=== PATIENT | female | born 1990 | race Two or more races ===

== ENCOUNTER → 2018-12-20 | Outpatient (CLI) | payer OTHER | END | disposition home or self-care (01) | LOC: ECT 09:15 | DX: F33.2 Major depressive disorder, recurrent severe without psychotic features (principal); Z91.5 Personal history of self-harm ==

== ENCOUNTER 2018-12-26 10:56 | Outpatient (RCR) | payer OTHER ==
[~2018-12-26] VITALS: Ht 162.6 cm; Wt 59.4 kg
[2018-12-26 10:36] VITALS: BP 118/72
[2018-12-26 10:55] VITALS: BP 117/56
[~2018-12-26 10:56] MED LIST: Methohexital Sodium Syr 100mg/10ml IVP ONE; NS 500ML ONE; Succinylcholine 20mg/ml 10ml vial ONE
[2018-12-26] MEDS ORDERED: Methohexital Sodium Syr 100mg/10ml IVP ONE (10:57)
[2018-12-26] MEDS ORDERED: Ketorolac 60mg Inj IM ONE (10:57)
[2018-12-26] MEDS ORDERED: NS 500ML ONE (10:57)
[2018-12-26] MEDS ORDERED: Succinylcholine 20mg/ml 10ml vial ONE (10:57)
[2018-12-26 11:00] VITALS: BP 110/52
[2018-12-26 11:05] VITALS: BP 112/48
[2018-12-26 11:10] VITALS: BP 105/55
[2018-12-26 11:24] VITALS: BP 118/72
[2018-12-28 10:55] VITALS: BP 104/60
[2018-12-28 11:10] VITALS: BP 120/53
[2018-12-28 11:15] VITALS: BP 121/55
[2018-12-28 11:20] VITALS: BP 121/53
[2018-12-28 11:25] VITALS: BP 110/44
[2018-12-31] MEDS ORDERED: NS 500ML ONE (06:00)
[2018-12-31] MEDS ORDERED: Ketorolac 30mg Inj ONE (06:00)
[2018-12-31] MEDS ORDERED: Succinylcholine 20mg/ml 10ml vial ONE (06:00)
[2018-12-31] MEDS ORDERED: Methohexital Sodium Syr 100mg/10ml IVP ONE (06:00)
[2018-12-31 07:39] VITALS: BP 109/70
[2018-12-31 07:51] VITALS: BP 131/68
[2018-12-31] MEDS ORDERED: Ketorolac 30mg Inj IV ONE (07:51)
[2018-12-31 07:56] VITALS: BP 122/67
[2018-12-31 08:01] VITALS: BP 119/53
[2018-12-31 08:06] VITALS: BP 122/56
[2019-01-02] MEDS ORDERED: Ketorolac 30mg Inj ONE (06:00)
[2019-01-02] MEDS ORDERED: Succinylcholine 20mg/ml 10ml vial ONE (06:00)
[2019-01-02] MEDS ORDERED: Methohexital Sodium Syr 100mg/10ml IVP ONE (06:00)
[2019-01-02] MEDS ORDERED: NS 500ML ONE (06:00)
[2019-01-02 07:43] VITALS: BP 121/70
[2019-01-02 07:55] VITALS: BP 122/59
[2019-01-02 08:00] VITALS: BP 115/54
[2019-01-02 08:05] VITALS: BP 117/65
[2019-01-02 08:10] VITALS: BP 116/62
[2019-01-04] MEDS ORDERED: Methohexital Sodium Syr 100mg/10ml IVP ONE (06:00)
[2019-01-04] MEDS ORDERED: Succinylcholine 20mg/ml 10ml vial ONE (06:00)
[2019-01-04] MEDS ORDERED: NS 500ML ONE (06:00)
[2019-01-04] MEDS ORDERED: Ketorolac 30mg Inj ONE (06:00)
[2019-01-04 07:26] VITALS: BP 117/67
[2019-01-04 07:40] VITALS: BP 136/75
[2019-01-04 07:45] VITALS: BP 101/72
[2019-01-04 07:50] VITALS: BP 111/62
[2019-01-04 07:55] VITALS: BP 123/54
[2019-01-07] MEDS ORDERED: Succinylcholine 20mg/ml 10ml vial ONE (06:00)
[2019-01-07] MEDS ORDERED: Ketorolac 30mg Inj ONE (06:00)
[2019-01-07] MEDS ORDERED: NS 500ML ONE (06:00)
[2019-01-07] MEDS ORDERED: Methohexital Sodium Syr 100mg/10ml IVP ONE (06:00)
[2019-01-07 07:26] VITALS: BP 119/82
[2019-01-07 07:40] VITALS: BP 139/67
[2019-01-07 07:45] VITALS: BP 126/68
[2019-01-07 07:50] VITALS: BP 121/54
[2019-01-07 07:55] VITALS: BP 108/59
[2019-01-09 07:22] VITALS: BP 117/71
[2019-01-09 07:40] VITALS: BP 139/70
[2019-01-09 07:45] VITALS: BP 159/70
[2019-01-09 07:50] VITALS: BP 119/58
[2019-01-09 07:55] VITALS: BP 113/56
[2019-01-09] MEDS ORDERED: Ketorolac 60mg Inj IM ONE (09:00)
[2019-01-09] MEDS ORDERED: Succinylcholine 20mg/ml 10ml vial ONE (09:00)
[2019-01-09] MEDS ORDERED: Methohexital Sodium Syr 100mg/10ml IVP ONE (09:00)
[2019-01-09] MEDS ORDERED: NS 500ML ONE (09:00)
== END 2019-01-12 | disposition home or self-care (01) ==
LOC: ECT 10:56
DX: F33.2 Major depressive disorder, recurrent severe without psychotic features (principal)
CPT/HCPCS: 90870; J0330; J1885; J2405; J3360; J7040

== ENCOUNTER 2019-01-14 05:48 | Outpatient (RCR) | payer OTHER ==
[~2019-01-14] VITALS: Ht 162.6 cm; Wt 59.4 kg
[2019-01-14] MEDS ORDERED: Succinylcholine 20mg/ml 10ml vial ONE ×2 (05:49)
[2019-01-14] MEDS ORDERED: NS 500ML ONE ×2 (05:49)
[2019-01-14] MEDS ORDERED: Methohexital Sodium Syr 100mg/10ml IVP ONE ×2 (05:49)
[2019-01-14] MEDS ORDERED: Ketorolac 60mg Inj IM ONE ×2 (05:49)
[2019-01-14 07:45] VITALS: BP 114/70
[2019-01-14 07:58] VITALS: BP 124/59
[2019-01-14 08:03] VITALS: BP 115/62
[2019-01-14 08:08] VITALS: BP 130/93
[2019-01-14 08:13] VITALS: BP 101/53
[2019-01-23] MEDS ORDERED: Succinylcholine 20mg/ml 10ml vial ONE (06:00)
[2019-01-23] MEDS ORDERED: NS 500ML ONE (06:00)
[2019-01-23] MEDS ORDERED: Methohexital Sodium Syr 100mg/10ml IVP ONE (06:00)
[2019-01-23] MEDS ORDERED: Ketorolac 60mg Inj IM ONE (06:00)
[2019-01-23 08:01] VITALS: BP 122/74
[2019-01-23 08:15] VITALS: BP 117/56
[2019-01-23 08:20] VITALS: BP 112/47
[2019-01-23 08:25] VITALS: BP 108/52
[2019-01-23 08:30] VITALS: BP 105/52
[2019-02-08 07:58] VITALS: BP 115/70
[2019-02-08 08:11] VITALS: BP 126/74
[2019-02-08 08:16] VITALS: BP 120/57
[2019-02-08 08:21] VITALS: BP 114/61
[2019-02-08 08:26] VITALS: BP 114/68
== END 2019-02-12 | disposition home or self-care (01) ==
LOC: ECT 05:48
DX: F33.2 Major depressive disorder, recurrent severe without psychotic features (principal)
CPT/HCPCS: 90870; J2405

== ENCOUNTER 2019-03-22 05:18 | Outpatient (RCR) | payer OTHER ==
[~2019-03-22] VITALS: Ht 162.6 cm; Wt 59.4 kg
[2019-03-29] MEDS ORDERED: Ketorolac 30mg Inj ONE (06:00)
[2019-03-29] MEDS ORDERED: Succinylcholine 20mg/ml 10ml vial ONE (06:00)
[2019-03-29] MEDS ORDERED: Methohexital Sodium Syr 100mg/10ml IVP ONE (06:00)
[2019-03-29] MEDS ORDERED: NS 500ML ONE (06:00)
[2019-03-29 08:33] VITALS: BP 119/68
[2019-03-29 08:44] VITALS: BP 132/92
[2019-03-29 08:49] VITALS: BP 116/59
[2019-03-29 08:54] VITALS: BP 91/55
[2019-03-29 08:59] VITALS: BP 112/58
== END 2019-04-13 | disposition home or self-care (01) ==
LOC: ECT 05:18
DX: F33.2 Major depressive disorder, recurrent severe without psychotic features (principal)
CPT/HCPCS: 90870; J0330; J1885; J2405; J7040

== ENCOUNTER 2019-04-26 08:26 | Outpatient (RCR) | payer OTHER ==
[~2019-04-26] VITALS: Ht 162.6 cm; Wt 59.4 kg
[2019-04-26] MEDS ORDERED: Ketorolac 60mg Inj IM ONE (08:27)
[2019-04-26] MEDS ORDERED: Succinylcholine 20mg/ml 10ml vial ONE (08:27)
[2019-04-26] MEDS ORDERED: Methohexital Sodium Syr 100mg/10ml IVP ONE (08:27)
[2019-04-26] MEDS ORDERED: NS 500ML ONE (08:27)
[2019-04-26 09:30] VITALS: BP 110/81
[2019-04-26 09:45] VITALS: BP 114/57
[2019-04-26 09:50] VITALS: BP 125/54
[2019-04-26 09:55] VITALS: BP 122/64
[2019-04-26 10:00] VITALS: BP 122/54
== END 2019-05-14 | disposition home or self-care (01) ==
LOC: ECT 08:26
DX: F33.2 Major depressive disorder, recurrent severe without psychotic features (principal)
CPT/HCPCS: 90870; J0330; J2405; J7040

== ENCOUNTER 2019-05-24 07:08 | Outpatient (RCR) | payer OTHER ==
[~2019-05-24] VITALS: Ht 30.5 cm; Wt 0.5 kg
[2019-05-24] MEDS ORDERED: Succinylcholine 20mg/ml 10ml vial ONE (07:09)
[2019-05-24] MEDS ORDERED: Ketorolac 60mg Inj IM ONE (07:09)
[2019-05-24] MEDS ORDERED: NS 500ML ONE (07:09)
[2019-05-24] MEDS ORDERED: Methohexital Sodium Syr 100mg/10ml IVP ONE (07:09)
[2019-05-24 08:39] VITALS: BP 108/68
[2019-05-24 08:55] VITALS: BP 113/51
[2019-05-24 09:00] VITALS: BP 119/57
[2019-05-24 09:05] VITALS: BP 115/26
[2019-05-24 09:10] VITALS: BP 112/56
== END 2019-06-13 | disposition home or self-care (01) ==
LOC: ECT 07:08
DX: F33.2 Major depressive disorder, recurrent severe without psychotic features (principal)
CPT/HCPCS: 90870; J0330; J2405; J7040

== ENCOUNTER 2019-06-21 06:12 | Outpatient (RCR) | payer OTHER ==
[~2019-06-21] VITALS: Ht 162.6 cm; Wt 59.4 kg
[2019-06-21] MEDS ORDERED: NS 500ML ONE (06:13)
[2019-06-21] MEDS ORDERED: Ketorolac 60mg Inj IM ONE (06:13)
[2019-06-21] MEDS ORDERED: Succinylcholine 20mg/ml 10ml vial ONE (06:13)
[2019-06-21] MEDS ORDERED: Methohexital Sodium Syr 100mg/10ml IVP ONE (06:13)
[2019-06-21 09:01] VITALS: BP 108/64
[2019-06-21 09:15] VITALS: BP 113/52
[2019-06-21 09:20] VITALS: BP 113/56
[2019-06-21 09:25] VITALS: BP 114/55
[2019-06-21 09:30] VITALS: BP 107/56
[2019-07-12] MEDS ORDERED: NS 500ML ONE (07:00)
[2019-07-12] MEDS ORDERED: Ketorolac 60mg Inj IM ONE (07:00)
[2019-07-12] MEDS ORDERED: Succinylcholine 20mg/ml 10ml vial ONE (07:00)
[2019-07-12] MEDS ORDERED: Methohexital Sodium Syr 100mg/10ml IVP ONE (07:00)
[2019-07-12 10:00] VITALS: BP 117/66
[2019-07-12 10:14] VITALS: BP 117/53
[2019-07-12 10:19] VITALS: BP 111/56
[2019-07-12 10:24] VITALS: BP 106/57
[2019-07-12 10:29] VITALS: BP 107/49
== END 2019-07-14 | disposition home or self-care (01) ==
LOC: ECT 06:12
DX: F33.2 Major depressive disorder, recurrent severe without psychotic features (principal)
CPT/HCPCS: 90870; J0330; J2405; J7040

== ENCOUNTER 2019-08-12 05:34 | Outpatient (RCR) | payer OTHER ==
[~2019-08-12] VITALS: Ht 30.5 cm; Wt 0.5 kg
[2019-08-12 08:43] VITALS: BP 115/66
[2019-08-12] MEDS ORDERED: Atropine Sulfate 0.4mg/ml inj IVP PRN (08:59)
[2019-08-12] MEDS ORDERED: Lidocaine 2% 100mg/5ml Carp IV PRN (08:59)
[2019-08-12 09:00] VITALS: BP 120/56
[2019-08-12] MEDS ORDERED: Succinylcholine 20mg/ml 10ml vial ONE (09:00)
[2019-08-12] MEDS ORDERED: Ketorolac 60mg Inj IM ONE (09:00)
[2019-08-12] MEDS ORDERED: Methohexital Sodium Syr 100mg/10ml IVP ONE (09:00)
[2019-08-12] MEDS ORDERED: NS 500ML ONE (09:00)
[2019-08-12 09:05] VITALS: BP 109/59
[2019-08-12 09:10] VITALS: BP 120/56
[2019-08-12 09:15] VITALS: BP 107/64
== END 2019-08-13 | disposition home or self-care (01) ==
LOC: ECT 05:34
DX: F33.2 Major depressive disorder, recurrent severe without psychotic features (principal)
CPT/HCPCS: 90870; J0330; J2405; J7040

== ENCOUNTER 2019-09-16 04:48 | Outpatient (RCR) | payer OTHER ==
[~2019-09-16] VITALS: Ht 30.5 cm; Wt 0.5 kg
[2019-09-18] VITALS (7 sets, daily range): BP systolic 96–122; BP diastolic 40–62
[2019-09-18] MEDS ORDERED: Succinylcholine 20mg/ml 10ml vial ONE (08:00)
[2019-09-18] MEDS ORDERED: Ketorolac 60mg Inj IM ONE (08:00)
[2019-09-18] MEDS ORDERED: NS 500ML ONE (08:00)
[2019-09-18] MEDS ORDERED: Methohexital Sodium Syr 100mg/10ml IVP ONE (08:00)
[2019-09-18] MEDS ORDERED: Atropine Sulfate 0.4mg/ml inj IVP PRN (11:39)
[2019-09-18] MEDS ORDERED: Lidocaine 2% 100mg/5ml Carp IV PRN (11:39)
== END 2019-10-14 | disposition home or self-care (01) ==
LOC: ECT 04:48
DX: F33.2 Major depressive disorder, recurrent severe without psychotic features (principal)
CPT/HCPCS: 90870; J0330; J2405; J7040

== ENCOUNTER 2019-10-23 04:43 | Outpatient (RCR) | payer OTHER ==
[~2019-10-23] VITALS: Ht 30.5 cm; Wt 0.5 kg
[2019-10-28] VITALS (7 sets, daily range): BP systolic 103–115; BP diastolic 47–69
[2019-10-28] MEDS ORDERED: Atropine Sulfate 0.4mg/ml inj IVP PRN (08:39)
[2019-10-28] MEDS ORDERED: NS 500ML ONE (09:00)
[2019-10-28] MEDS ORDERED: Ketorolac 60mg Inj IM ONE (09:00)
[2019-10-28] MEDS ORDERED: Methohexita Syr 100mg/10ml IVP ONE (09:00)
[2019-10-28] MEDS ORDERED: Succinylcholine 20mg/ml 10ml vial ONE (09:00)
== END 2019-11-13 | disposition home or self-care (01) ==
LOC: ECT 04:43
DX: F33.2 Major depressive disorder, recurrent severe without psychotic features (principal)
CPT/HCPCS: 90870; J0330; J2405; J7040

== ENCOUNTER 2019-12-09 06:51 | Outpatient (RCR) | payer OTHER ==
[2019-12-09] VITALS (7 sets, daily range): BP systolic 113–123; BP diastolic 51–74
[~2019-12-09] VITALS: Ht 162.6 cm; Wt 59.4 kg
[2019-12-09] MEDS ORDERED: NS 500ML ONE (06:52)
[2019-12-09] MEDS ORDERED: Ketorolac 30mg Inj ONE (06:52)
[2019-12-09] MEDS ORDERED: Succinylcholine 20mg/ml 10ml vial ONE (06:52)
[2019-12-09] MEDS ORDERED: Methohexital Sodium Syr 100mg/10ml IVP ONE (06:52)
== END 2019-12-14 | disposition home or self-care (01) ==
LOC: ECT 06:51
DX: F33.2 Major depressive disorder, recurrent severe without psychotic features (principal)
CPT/HCPCS: 90870; J0330; J1885; J2405; J7040

== ENCOUNTER 2020-01-20 05:03 | Outpatient (RCR) | payer OTHER ==
[~2020-01-20] VITALS: Ht 30.5 cm; Wt 0.5 kg
[2020-01-20] VITALS (7 sets, daily range): BP systolic 114–129; BP diastolic 58–72
[2020-01-20] MEDS ORDERED: Methohexita Syr 100mg/10ml IVP ONE (05:04)
[2020-01-20] MEDS ORDERED: Succinylcholine 20mg/ml 10ml vial ONE (05:04)
[2020-01-20] MEDS ORDERED: Ketorolac 60mg Inj IM ONE (05:04)
[2020-01-20] MEDS ORDERED: NS 500ML ONE (05:04)
== END 2020-02-13 | disposition home or self-care (01) ==
LOC: ECT 05:03
DX: F33.2 Major depressive disorder, recurrent severe without psychotic features (principal)
CPT/HCPCS: 90870; J0330; J2405; J7040

== ENCOUNTER 2020-03-06 05:31 | Outpatient (RCR) | payer OTHER ==
[2020-03-06] VITALS (7 sets, daily range): BP systolic 109–120; BP diastolic 53–62
[~2020-03-06] VITALS: Ht 162.6 cm; Wt 59.4 kg
[2020-03-06] MEDS ORDERED: Ketorolac 30mg Inj ONE (05:32)
[2020-03-06] MEDS ORDERED: Succinylcholine 20mg/ml 10ml vial ONE (05:32)
[2020-03-06] MEDS ORDERED: NS 500ML ONE (05:32)
[2020-03-06] MEDS ORDERED: Methohexita Syr 100mg/10ml IVP ONE (05:32)
== END 2020-03-15 | disposition home or self-care (01) ==
LOC: ECT 05:31
DX: F33.2 Major depressive disorder, recurrent severe without psychotic features (principal)
CPT/HCPCS: 90870; J0330; J1885; J2405; J7040